=== PATIENT | male | born 1980 | race Hispanic/Latino ===

== ENCOUNTER 2020-01-24 08:02 | Day surgery (SDC) | payer SELFPAY ==
[~2020-01-24] VITALS: Ht 180.3 cm; Wt 101.6 kg
[2020-01-24] VITALS (22 sets, daily range): BP systolic 131–161; BP diastolic 91–103
[~2020-01-24 08:02] MED LIST: LISI10TA7 PO; SODIUM CHLORIDE 0.9% 1000ML 1,000 ML IV ONE
[2020-01-24] MEDS: INDOMETHACIN 50 MG SUPP.RECT RC SCH ×2 (09:57→12:00)
[2020-01-24] MEDS ORDERED: IOHEXOL-350 50ML VIAL IV ONE (10:31)
[2020-01-24] MEDS ORDERED: MIDAZOLAM HCL 1 MG/ML 2ML VIAL ONE (10:52)
[2020-01-24] MEDS ORDERED: FENTANYL CITRATE PF 50 MCG/1 ML 2ML VIAL ONE (10:52)
[2020-01-24] MEDS ORDERED: ONDANSETRON HCL 4 MG/2 ML VIAL ONE (11:20)
[2020-01-24] MEDS ORDERED: EPHEDRINE SULFATE 50 MG/ML AMPULE ONE (11:33)
[2020-01-24] MEDS ORDERED: MEPERIDINE-PF 25 MG/ML SYG ONE (14:03)
== END 2020-01-24 14:15 | disposition home or self-care (01) ==
LOC: DAH 08:02 → ENDO 08:02
PROVIDERS: ATTEND Internal Medicine Gastroenterology
DX: K80.50 Calculus of bile duct without cholangitis or cholecystitis without obstruction (principal); K80.21 Calculus of gallbladder without cholecystitis with obstruction; K75.0 Abscess of liver; I10 Essential (primary) hypertension; Z90.49 Acquired absence of other specified parts of digestive tract; Z79.899 Other long term (current) drug therapy; Z20.828 Contact with and (suspected) exposure to other viral communicable diseases
CPT/HCPCS: 36415; 43265; 43273; 43275; 74328; A4215; A4221; A4222; A4223; A4606; A4663; C1769; C1773; C9803; J2250; J2405; J3010; J3490; J7030; Q9967; U0003; 43249; 74330; J2175

== ENCOUNTER 2020-01-25 15:19 | Inpatient (IN) | payer OTHER, SELFPAY ==
[~2020-01-25] VITALS: Ht 177.8 cm; Wt 101.8 kg
[~2020-01-25 15:19] MED LIST changes: -SODIUM CHLORIDE 0.9% 1000ML 1,000 ML IV ONE
[2020-01-25 16:02] LABS: APPEARANCE,URINE SL CLOUDY (CLEAR); BILIRUBIN,URINE LARGE (NEGATIVE); COLOR,URINE ORANGE (YELLOW); GLUCOSE, URINE (UA) 100 mg/dL (NEGATIVE); KETONES,URINE 5 mg/dL (NEGATIVE); LEUKOCYTE ESTERASE ,URINE NEGATIVE (NEGATIVE); NITRATE,URINE POSITIVE (NEGATIVE); OCCULT BLOOD,URINE TRACE-INTACT (NEGATIVE); PH,URINE 6.5 (5.0-8.0); PROTEIN,URINE 100 mg/dL (NEGATIVE); UROBILINOGEN,URINE >=8.0 mg/dL (0.2-1.0)
[2020-01-25 16:15] LABS: BACTERIA,URINE Moderate /HPF (None Seen); MUCUS,URINE Few LPF (None Seen); SQUAMOUS EPITHELIAL CELL,UR Few /HPF (0-2)
[2020-01-25 16:36] LABS: BASOPHILS % (AUTO) 0.3 % (0.0-5.0); EOSINOPHILS % (AUTO) 0.3 % (0.0-8.0); LYMPHOCYTES % (AUTO) 10.2 % (21.0-51.0); MEAN CORPUSCULAR HEMOGLOBIN 28.5 pg (27.0-33.0); MEAN CORPUSCULAR HGB CONC 33.7 g/dL (32.0-36.0); MEAN CORPUSCULAR VOLUME 84.7 fL (79-99); MONOCYTES % (AUTO) 4.1 % (3.0-13.0); NEUTROPHILS % (AUTO) 84.9 % (40.0-77.0); PLATELET COUNT (AUTO) 124 K/uL (130-400); RED BLOOD CELL COUNT(AUTO) 5.43 MIL/uL (4.50-6.20); RED CELL DISTRIBUTION WIDTH 13.2 % (11.0-15.5); WHITE BLOOD COUNT (AUTO) 6.4 K/uL (4.8-10.8)
[2020-01-25 16:47] LABS: CREATININE 1.4 mg/dL (0.5-1.5); INR 1.33 (0.85-1.15); PARTIAL THROMBOPLASTIN TIME 30.8 SEC (26.3-35.5); POTASSIUM 3.7 mmol/L (3.5-5.1); PROTHROMBIN TIME 14.2 SEC (9.6-11.6)
[2020-01-25 16:56] LABS: ALBUMIN 3.8 g/dL (3.5-5.0); BILIRUBIN,TOTAL 7.1 mg/dL (0.2-1.0); TOTAL PROTEIN, SERUM 7.7 g/dL (6.0-8.3)
[2020-01-25] MEDS ORDERED: SODIUM CHLORIDE 0.9% 1000ML 1,000 ML IV ONE (17:39)
[2020-01-25] MEDS ORDERED: HYOSCYAMINE SULFATE 0.125 MG TAB.SUBL SL ONE (17:39)
[2020-01-25] MEDS ORDERED: ACETAMINOPHEN EXTRA STRENGTH 500 MG TABLET ONE (19:01)
[2020-01-25] MEDS ORDERED: HYDRALAZINE HCL 20 MG/ML VIAL IV PRN (19:45)
[2020-01-25] MEDS ORDERED: ONDANSETRON HCL 4 MG/2 ML VIAL IV PRN (19:45)
[2020-01-25] MEDS ORDERED: SODIUM CHLORIDE 0.9% 1000ML 1,000 ML IV SCH (19:45)
[2020-01-25] MEDS ORDERED: LACTULOSE 20 GM/30 ML UDCUP PO PRN (19:45)
[2020-01-25] MEDS ORDERED: IOHEXOL-350 75 ML VIAL IV ONE (20:07)
[2020-01-26 04:55] LABS: BASOPHILS % (AUTO) 0.7 % (0.0-5.0); EOSINOPHILS % (AUTO) 1.1 % (0.0-8.0); HEMATOCRIT 44.9 % (42-54); LYMPHOCYTES % (AUTO) 8.2 % (21.0-51.0); MEAN CORPUSCULAR HEMOGLOBIN 28.6 pg (27.0-33.0); MEAN CORPUSCULAR HGB CONC 33.6 g/dL (32.0-36.0); MONOCYTES % (AUTO) 5.2 % (3.0-13.0); NEUTROPHILS % (AUTO) 84.6 % (40.0-77.0); PLATELET COUNT (AUTO) 127 K/uL (130-400); RED BLOOD CELL COUNT(AUTO) 5.28 MIL/uL (4.50-6.20); RED CELL DISTRIBUTION WIDTH 13.2 % (11.0-15.5); WHITE BLOOD COUNT (AUTO) 4.6 K/uL (4.8-10.8)
[2020-01-26 05:07] LABS: CREATININE 1.2 mg/dL (0.5-1.5); POTASSIUM 3.6 mmol/L (3.5-5.1)
[2020-01-26] MEDS ORDERED: ACETAMINOPHEN ELIXIR 650 MG/20.3 ML UDCUP ONE ×2 (08:19→16:33)
[2020-01-26] MEDS ORDERED: FAMOTIDINE/PF 20 MG/2 ML VIAL IV ONE (08:58)
[2020-01-26] MEDS: FAMOTIDINE/PF 20 MG/2 ML VIAL IV SCH ×2 (09:00→23:20)
[2020-01-26] MEDS: LACTATED RINGERS 1000ML 1,000 ML IV SCH ×2 (09:45→23:05)
[2020-01-26] MEDS ORDERED: LACTATED RINGERS 1000ML 1,000 ML IV ONE (10:08)
[2020-01-26] MEDS ORDERED: ZOSYN 3.375GM+NS 50ML 50 ML IV ONE ×2 (10:09→18:38)
--- NOTE | 2020-01-26 11:15 | NUR ---
SPOKE WITH PATIENT AT BEDSIDE IN ED FOR DC PLANNING LIVES WITH SPOUSE, WORKS IN [employer] ON WEEKEND FOR 48 HRS SHIFT, THEN DRIVES HOME. IS INDEPENDENT, ACTIVE, NO DME, DRIVES,- STATES PROBLEMS WITH ABDOMINAL PAIN X SEVERAL MONTHS , HAS LOST ABOUT 80 POUNDS SEES [facility] IN [facility], CAN AFFORD MD VISITS AND GETS MEDS FROM [facility] 5$ MED LIST. DCP IS HOME, CM TO FOLLOW . [facility] Addendum: 01/27/20 at 1505 by NEIL COYNE RN CM Amended: Links added.
[2020-01-26 12:09] LABS: CREATININE 1.1 mg/dL (0.5-1.5); POTASSIUM 3.7 mmol/L (3.5-5.1)
[2020-01-26 12:14] LABS: ALBUMIN 3.4 g/dL (3.5-5.0); BILIRUBIN,TOTAL 4.1 mg/dL (0.2-1.0); TOTAL PROTEIN, SERUM 7.3 g/dL (6.0-8.3)
[2020-01-26] MEDS: ZOSYN 3.375GM+NS 50ML 50 ML IV SCH (17:45)
[2020-01-26 23:19] VITALS: BP 149/95
[2020-01-26] MEDS ORDERED: MULT-1224 PO (23:39)
[2020-01-27] MEDS ORDERED: ACETAMINOPHEN ELIXIR 160 MG/5ML UDCUP ONE (00:14)
[2020-01-27] MEDS: ZOSYN 3.375GM+NS 50ML 50 ML IV SCH ×3 (01:45→16:20)
[2020-01-27] MEDS ORDERED: ACETAMINOPHEN ELIXIR 325 MG/10.15ML UDCUP PO PRN ×2 (03:15)
[2020-01-27 04:05] VITALS: BP 132/95
[2020-01-27 05:06] LABS: MEAN CORPUSCULAR HEMOGLOBIN 28.8 pg (27.0-33.0); MEAN CORPUSCULAR HGB CONC 33.5 g/dL (32.0-36.0); MEAN CORPUSCULAR VOLUME 86.1 fL (79-99); RED BLOOD CELL COUNT(AUTO) 5.34 MIL/uL (4.50-6.20); RED CELL DISTRIBUTION WIDTH 13.2 % (11.0-15.5); WHITE BLOOD COUNT (AUTO) 3.8 K/uL (4.8-10.8)
[2020-01-27 05:31] LABS: ALBUMIN 3.2 g/dL (3.5-5.0); BILIRUBIN,TOTAL 2.2 mg/dL (0.2-1.0); CREATININE 1.1 mg/dL (0.5-1.5); POTASSIUM 3.7 mmol/L (3.5-5.1); TOTAL PROTEIN, SERUM 7.3 g/dL (6.0-8.3)
[2020-01-27] MEDS: LACTATED RINGERS 1000ML 1,000 ML IV SCH (06:07)
[2020-01-27 08:00] VITALS: BP 145/99
[2020-01-27] MEDS: FAMOTIDINE/PF 20 MG/2 ML VIAL IV SCH ×2 (08:56→20:22)
[2020-01-27 12:00] VITALS: BP 147/100
[2020-01-27 16:00] VITALS: BP 138/108
[2020-01-27 19:37] VITALS: BP 138/100
--- NOTE | 2020-01-27 19:38 | NUR ---
NOTE PATIENTS BP 138/100 HR 81. PATIENT EXPRESSING CONCERN ABOUT NOT TAKING HIS HME MEDICATION LISINOPRIL SINCE HE HAS BEEN HERE IN HOSPITAL AND WOULD LIKE TO HAVE DOCTOR ASK ABOUT IT. REVIEWED RECONCILIATION LIST AND IT HAS NOT BEEN RESUMED. PAGED HOSPITALIST ANSWERING SERVICE AND RECEIVED CALL BACK FROM SHAINA SALGADO NP. SAID TO HOLD LISINOPRIL FOR NOW BECAUSE IT CAN AFFECT LIVER. JUST CONTINUE USING APRESOLINE PRN IN EMAR. NOTIFIED PATIENT OF THIS.
[2020-01-27] MEDS ORDERED: ACETAMINOPHEN ELIXIR 650 MG/20.3 ML UDCUP PO PRN ×2 (20:15)
[2020-01-28] VITALS (7 sets, daily range): BP systolic 117–149; BP diastolic 75–105
[2020-01-28] MEDS: ZOSYN 3.375GM+NS 50ML 50 ML IV SCH ×3 (00:02→17:07)
[2020-01-28] MEDS: LACTATED RINGERS 1000ML 1,000 ML IV SCH (02:42)
[2020-01-28 05:10] LABS: ALBUMIN 3.2 g/dL (3.5-5.0); BILIRUBIN,TOTAL 1.4 mg/dL (0.2-1.0); CREATININE 1.1 mg/dL (0.5-1.5); POTASSIUM 3.4 mmol/L (3.5-5.1); TOTAL PROTEIN, SERUM 7.4 g/dL (6.0-8.3)
--- NOTE | 2020-01-28 08:16 | NUR ---
DR CLEMENTE PAGED DR. CLEMENTE AND HE CALLED BACK PER NURSING COMMUNICATION..PROVIDED UPDATED LABS HE REQUESTED..ORDERED DIET COULD BE ADVANCED TO LOW FAT AND IF TOLERATES IT HE CAN GO HOME FROM [facility].
[2020-01-28] MEDS: FAMOTIDINE/PF 20 MG/2 ML VIAL IV SCH ×2 (09:29→20:34)
[2020-01-29] MEDS: ZOSYN 3.375GM+NS 50ML 50 ML IV SCH ×2 (01:57→08:02)
[2020-01-29] MEDS: LACTATED RINGERS 1000ML 1,000 ML IV SCH ×3 (02:00→04:25)
[2020-01-29 03:48] VITALS: BP 153/93
[2020-01-29 05:15] LABS: BASOPHILS % (AUTO) 0.8 % (0.0-5.0); EOSINOPHILS % (AUTO) 4.9 % (0.0-8.0); HEMATOCRIT 43.3 % (42-54); LYMPHOCYTES % (AUTO) 40.1 % (21.0-51.0); MEAN CORPUSCULAR HEMOGLOBIN 28.2 pg (27.0-33.0); MEAN CORPUSCULAR HGB CONC 33.5 g/dL (32.0-36.0); MEAN CORPUSCULAR VOLUME 84.1 fL (79-99); MONOCYTES % (AUTO) 9.4 % (3.0-13.0); NEUTROPHILS % (AUTO) 44.3 % (40.0-77.0); PLATELET COUNT (AUTO) 138 K/uL (130-400); RED BLOOD CELL COUNT(AUTO) 5.15 MIL/uL (4.50-6.20); RED CELL DISTRIBUTION WIDTH 12.9 % (11.0-15.5); WHITE BLOOD COUNT (AUTO) 3.8 K/uL (4.8-10.8)
[2020-01-29 05:29] LABS: ALBUMIN 3.2 g/dL (3.5-5.0); CREATININE 1.2 mg/dL (0.5-1.5); POTASSIUM 3.7 mmol/L (3.5-5.1); TOTAL PROTEIN, SERUM 7.4 g/dL (6.0-8.3)
[2020-01-29] MEDS: FAMOTIDINE/PF 20 MG/2 ML VIAL IV SCH (08:02)
[2020-01-29 08:12] VITALS: BP 142/91
[2020-01-29 11:17] VITALS: BP 138/90
--- NOTE | 2020-01-29 16:09 | NUR ---
PT DISCHARGE INSTRUCTIONS AND WORK EXCUSE REVIEWED AND UNDERSTOOD BY PT AND SPOUSE. IV REMOVED W/O DIFFICULTY OR COMPLICATIONS, PT WALKED/ESCORTED BY THIS NURSE FOR DISMISSAL TO THE ER EXIT/ENTRANCE. NO C/O PAIN OR RESP DIFFICULTY NOTED.
[2020-01-30] MEDS ORDERED: LISINOPRIL 10 MG TABLET PO SCH (09:00)
[2020-01-30] MEDS ORDERED: MULTIVITAMIN WITH MINERALS TABLET PO SCH (09:00)
== END 2020-01-29 16:05 | disposition home or self-care (01) | DRG 872 ==
LOC: EDH 15:19 → EDHIP 15:20 → 3DH 01-26 21:33
PROVIDERS: ADMIT Internal Medicine; ATTEND Internal Medicine
DX: A41.9 Sepsis, unspecified organism (principal); K83.09 Other cholangitis; K76.0 Fatty (change of) liver, not elsewhere classified; Z20.828 Contact with and (suspected) exposure to other viral communicable diseases; I10 Essential (primary) hypertension; Z90.49 Acquired absence of other specified parts of digestive tract
CPT/HCPCS: 36415; 71045; 71275; 74176; 80048; 80053; 81001; 82140; 82150; 82550; 82728; 83690; 84484; 85025; 85027; 85378; 85610; 85730; 86140; 87040; 87088; 87426; 93005; G0378; J0360; J2543; J3490; J7030; J7120; Q9967; U0003

== ENCOUNTER 2020-02-18 07:06 | Emergency (ER) | payer SELFPAY ==
[~2020-02-18 07:06] MED LIST changes: +MULT-1224 PO
[2020-02-18] MEDS ORDERED: ONDANSETRON HCL 4 MG/2 ML VIAL ONE (07:35)
[2020-02-18] MEDS ORDERED: HYDROMORPHONE HCL 0.5 MG/0.5 ML ML ONE (07:36)
[2020-02-18] MEDS ORDERED: SODIUM CHLORIDE 0.9% 1000ML 1,000 ML IV ONE (07:37)
[2020-02-18 07:56] LABS: BASOPHILS % (AUTO) 0.6 % (0.0-5.0); LYMPHOCYTES % (AUTO) 25.1 % (21.0-51.0); MEAN CORPUSCULAR HEMOGLOBIN 28.5 pg (27.0-33.0); MEAN CORPUSCULAR VOLUME 86.6 fL (79-99); MONOCYTES % (AUTO) 3.1 % (3.0-13.0); NEUTROPHILS % (AUTO) 68.9 % (40.0-77.0); PLATELET COUNT (AUTO) 117 K/uL (130-400); RED BLOOD CELL COUNT(AUTO) 5.43 MIL/uL (4.50-6.20); RED CELL DISTRIBUTION WIDTH 13.2 % (11.0-15.5); WHITE BLOOD COUNT (AUTO) 6.9 K/uL (4.8-10.8)
[2020-02-18 08:31] LABS: ALBUMIN 4.1 g/dL (3.5-5.0); BILIRUBIN,TOTAL 0.6 mg/dL (0.2-1.0); CREATININE 1.3 mg/dL (0.5-1.5); POTASSIUM 4.5 mmol/L (3.5-5.1); TOTAL PROTEIN, SERUM 7.9 g/dL (6.0-8.3)
[2020-02-18 09:03] LABS: APPEARANCE,URINE Clear (CLEAR); BILIRUBIN,URINE Negative (NEGATIVE); COLOR,URINE Yellow (YELLOW); GLUCOSE, URINE (UA) Negative (NEGATIVE); KETONES,URINE Negative (NEGATIVE); LEUKOCYTE ESTERASE ,URINE Negative (NEGATIVE); NITRATE,URINE Negative (NEGATIVE); OCCULT BLOOD,URINE Large (NEGATIVE); PROTEIN,URINE Negative (NEGATIVE); UROBILINOGEN,URINE 0.2 mg/dL (0.2-1.0)
[2020-02-18 09:15] LABS: BACTERIA,URINE None Seen /HPF (None Seen); SQUAMOUS EPITHELIAL CELL,UR Rare /HPF (0-2); WBC,URINE None Seen /HPF (0-1)
[2020-02-18 09:22] LABS: INR 0.99 (0.85-1.15); PARTIAL THROMBOPLASTIN TIME 24.7 SEC (26.3-35.5); PROTHROMBIN TIME 10.7 SEC (9.6-11.6)
== END 2020-02-18 10:12 | disposition home or self-care (01) ==
LOC: EDH 07:06
DX: M54.5 Low back pain (principal); I10 Essential (primary) hypertension; Z90.49 Acquired absence of other specified parts of digestive tract
CPT/HCPCS: 36415; 74176; 80053; 81001; 83690; 85025; 85610; 85730; 96361; 96374; 96375; 99284; J1170; J2405; J7030